=== PATIENT | female | born 1940 | race Caucasian/White ===

== ENCOUNTER → 2018-01-05 | Outpatient (CLI) | payer OTHER ==
[2018-01-05 11:00] LABS: ISTAT CREATININE 0.6 mg/dL (0.6-1.1)
[2018-01-05] MEDS: IOHEXOL 240 MG/ML 50ML VIAL. PO (12:17)
[2018-01-05] MEDS: IOHEXOL 300 MG/ML 100ML VIAL. IV (12:17)
== END | disposition home or self-care (01) ==
LOC: KCIC CT 08:56
DX: K57.30 Diverticulosis of large intestine without perforation or abscess without bleeding (principal); N28.1 Cyst of kidney, acquired; J84.10 Pulmonary fibrosis, unspecified; M48.54XD Collapsed vertebra, not elsewhere classified, thoracic region, subsequent encounter for fracture with routine healing
CPT/HCPCS: 74178; 82565; Q9966; Q9967